=== PATIENT | female | born 1940 | race Caucasian/White ===

== ENCOUNTER 2016-11-07 20:30 | Inpatient (IN) | payer MEDICARE, OTHER ==
[~2016-11-07] VITALS: Ht 167.6 cm; Wt 69.9 kg
[~2016-11-07 20:30] MED LIST: ALBU8.5H2 IH; AMLO10TA3 PO; ASPI-973 PO; CALC600T12 PO; CETI10CA PO; CHOL200047 PO; CITA10TA9 PO; DOXE100C4 PO; EXCEDRIN PO; GUAI400T57 PO; HYDR2TAB28 PO; LETR2.5T4 PO; LOPE2TAB32 PO; MONT10TA23 PO; MULT-1018 PO; Medical Marijuana; OMEG500C3 PO; PANT40TA3 PO; TIOT18CA3 IH; UBID300C PO
[2016-11-07 20:37] VITALS: BP 146/65; PULSE 56; RESP 18; O2SAT 98
[2016-11-07 20:46] LABS: BASOPHILS % (AUTO) 0.8 % (0-3)
[2016-11-07 20:48] LABS: EOSINOPHILS % (AUTO) 2.4 % (0-5); MONOCYTES % (AUTO) 9.5 % (4-12); Platelet Count 674 bil/L (150-400)
--- NOTE | 2016-11-07 20:57 | ED.REPORT ---
HPI-Abd Pain F 40 and Over Date of Service Nov 07, 2016 ED Provider: Dr. Payne. A 75 year old female with a history or COPD presents to the ED via EMS complaining of abdominal pain onset yesterday. The pain is concentrated in the left side, does not radiate, is exacerbated by movements, is described as sharp and is rated as 10/10. She reports never feeling pain like this in the past. She took hydrocodone at home to treat the pain. Associated symptoms include diarrheax3 onset 3 days ago. She has an abdominal scar from previous Gallbladder surgery. The patient denies any fever, nausea, or vomit. She is currently recovering from bronchitis and reports related wheezing. She does not use a nebulizer, but does use Albuterol inhaler. Nursing Notes Stated Complaint: STOMACH PAIN Chief Complaint: Female Abdominal Pain Nursing Notes Reviewed: Yes ([employer], [employer] not reconciled) Allergies: Coded Allergies: Penicillins (Verified Allergy, Severe, RASH, ITCHING, 08/03/15) fluticasone (Verified Allergy, Severe, WHEEZING, 08/03/15) sulfamethoxazole (Verified Allergy, Severe, RASH, ITCHING, 08/03/15) niacin (Verified Allergy, Mild, Rash,Itching,, 08/03/15) Adhesives (Verified Allergy, Unknown, UNKNOWN, 08/03/15) cephalexin (Verified Adverse Reaction, Severe, ITCHING, 08/03/15) flunisolide (Verified Adverse Reaction, Severe, COUGH, SORE THROAT, ) oxycodone (Verified Adverse Reaction, Severe, itching, 08/03/15) Uncoded Allergies: BENZOCAIN (Allergy, Unknown, UNKNOWN, 03/25/15) LANOCAIN (Allergy, Unknown, UNKNOWN, 03/25/15) SUTURE, (CAT GUT) (Allergy, Unknown, UNKNOWN, 03/25/15) BENEDRYL (Adverse Reaction, Severe, ITCHING, 03/25/15) Scheduled ([Excedrin]) 1-2 TAB PO DAILY Amlodipine (Amlodipine) 10 Mg Tablet 10 MG PO DAILY Amlodipine (Amlodipine) 5 Mg Tablet 5 MG PO DAILY Aspirin (Aspirin) 81 Mg Tablet 81 MG PO DAILY Cetirizine HCl (Zyrtec) 10 Mg Capsule 10 MG PO BID Cholecalciferol (Vitamin D3) (Vitamin D3) 2,000 Unit Capsule 2,000 UNIT PO DAILY Citalopram (Citalopram) 10 Mg Tablet 10 MG PO BID Doxepin (Doxepin) 100 Mg Capsule 50-150 MG PO HS Guaifenesin (Guaifenesin) 400 Mg Tablet 400 MG PO DAILY Letrozole (Letrozole) 2.5 Mg Tablet 2.5 MG PO DAILY Loperamide (Loperamide) 2 Mg Tablet 2 MG PO DAILY DAILY WHEN LEAVING HOME Montelukast (Montelukast) 10 Mg Tablet 10 MG PO HS Multivitamin (Multi Vitamin Daily) 1 Each Tablet 1 EACH PO DAILY [place]-3 Fatty Acids (Fish Oil) 500 Mg Capsule 500 MG PO BID Pantoprazole DR (Pantoprazole DR) 40 Mg Tablet.dr 40 MG PO BID Ubidecarenone (Co Q-10) 300 Mg Capsule 300 MG PO DAILY Scheduled PRN Albuterol HFA (Proair HFA) 8.5 Gm Hfa.aer.ad 2 PUFFS IH Q4 PRN PRN For Shortness of Breath Hydromorphone (Hydromorphone) 2 Mg Tablet 2-4 MG PO Q4H PRN PRN Pain Tiotropium [place] (Spiriva) 18 Mcg Cap.w.dev 18 MCG IH DAILY PRN PRN For Shortness of Breath Miscellaneous Medications ([Medical Marijuana]) Calcium Carbonate (Calcium) 600 Mg Tablet 1,000 MG PO General Time Seen by MD: 20:55 Chief Complaint Abdominal pain Hx Obtained From: Patient, EMS Arrived By: Ambulance Sudden in Onset?: Yes Onset Occurred: Yesterday Symptom Duration: Since onset Recent Healthcare: No recent doctor visit Similar Sx Previous: No Past Medical History Past Medical History Notes: Oncologist Dr. Borja Past Medical History 1. Chronic depression and anxiety. 2. COPD. 3. Until recently tobacco addiction. 4. Possible coronary artery disease. 5. GERD. 6. Hypertension. 7. Osteopenia. 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 Tonsillectomy adenoidectomy excision. 2. Ovarian cysts. 3. Right breast biopsy in 1971. 4. Cholecystectomy through a subcostal incision 1973. 5. Hysterectomy without oophorectomy. 6. Colonoscopy with polypectomy. 7. Bilateral cataract extractions and lens implants. 8. Partial pneumonectomy Smoking History Former Smoker Review of Systems Constitutional: Denies: Fever Respiratory: Reports: Wheezing GI: Reports: Abdominal pain, Diarrhea, Denies: Nausea, Vomiting Complete sys rev & neg: except as marked. Physical Exam Vital Signs Vital Signs (First) Date Time Temp Pulse Resp B/P Pulse Ox O2 Delivery O2 Flow Rate FiO2 11/07/16 20:37 36.8 56 18 146/65 98 Room Air Initial VS: Reviewed, Vital signs normal General/Constitutional: Awake, Alert Patient is in severe pain. She is holding her left abdomen and is literally in tears. A few scattered wheezes. No dyspnea or tachypnea. No coughing during exam. Cardiovascular: Heart rate NL, Regular rhythm, Heart sounds NL, No gallop, No murmurs, No rubs Abdomen: Soft, No guarding, No rebound Large scar across entire midline transverse horizontally from prior cholecystectomy. While she is having pain, there is no particular tenderness upon palpation. Back: Atraumatic, Full range of motion Head / Eyes: Atraumatic, Normocephalic, PERRL, EOMI ENT: Atraumatic, Airway patent, Mucous membranes moist Skin: Atraumatic, Color NL, No rash, Warm, Dry Neurologic: Oriented X3, Speech NL Neck: Atraumatic, Full range of motion Upper Extremity / MS: Atraumatic, Full range of motion Wrist / Hand: Atraumatic, Full range of motion Lower Extremity / Pelvis / MS: Atraumatic, Full range of motion Interpretation & Diagnostics Interpretation & Diagnostics: Abdomen CT. Conclusion: Large rectus hematoma in the left anterior abdominal wall. Dilation of the bilateral tract. This is a frequent normal finding after cholecystectomy. Correlate with laboratory data to determine if further evauluation is indicated to exclude obstruction. Minimal patcy ground glass density in the right lung base. This may be acute or chronic. Any signs or symptoms of pneumonia? Small hiatal hernia. Cystic lesion in the left adnexa. This may need followup depending on history. This report was transmitted to the emergency room at 11/07/2016 - 2231 by Jacob Benitez. Interpreted by radiologist. Lab Results Interpretation Result Diagram: 11/08/16 0002 11/07/162039 Test 11/07/16 20:40 11/07/16 21:42 11/07/16 22:40 White Blood Count 12.3th/mm3 (3.8-10.1) Red Blood Count 5.15mil/mm3 (3.90-5.20) Mean Corpuscular Volume 80.0fL (81-100) Mean Corpuscular Hemoglobin 26.0pg (27.0-35.0) Mean Corpuscular Hemoglobin Concent 32.5% (32.0-37.0) Red Cell Distribution Width 18.0% (12.3-15.4) Platelet Count 674bil/L (150-400) Neutrophils (%) (Auto) 71.0% (40-74) Lymphocytes (%) (Auto) 14.5% (14-46) Monocytes (%) (Auto) 9.5% (4-12) Eosinophils (%) (Auto) 2.4% (0-5) Basophils (%) (Auto) 0.8% (0-3) Sodium Level 130mEq/L (134-144) Potassium Level 3.6mEq/L (3.5-5.2) Chloride Level 89mEq/L (97-108) Carbon Dioxide Level 22mmol/L (18-29) Blood Urea Nitrogen 9mg/dL (8-27) Creatinine 0.90mg/dL (0.57-1.00) Estimat Glomerular Filtration Rate 87mL/min (>59) Glucose Level 142mg/dL (60-99) Calcium Level 9.6mg/dL (8.5-10.1) Magnesium Level 1.8mg/dL (1.6-2.6) Total Bilirubin 0.2mg/dL (0.0-1.2) Aspartate Amino Transf (AST/SGOT) 50U/L (0-50) Alanine Aminotransferase (ALT/SGPT) 22U/L (0-32) Alkaline Phosphatase 57U/L (25-165) Total Protein 7.5g/dL (6.4-8.4) Albumin 4.4g/dL (3.4-5.0) Lipase 80U/L (13-60) Lactic Acid Level 1.4mmol/L (0.4-2.0) Prothrombin Time 10.2sec (8.1-12.5) Prothromb Time International Ratio 0.95ratio Lab Results Interpretation: CBC positive leukocytosis CMP mild hyponatremia X-Ray Chest Interpretation Chest Xray Interpretation: No acute disease process, surgical clips 2334. Interpretation / Wet Read by: Wet read ED physician Re-Eval/Medical Decision Med Decision/Clinical Course This is a 75-year-old female presents with acute onset of pleuritic left sided abdominal pain. She has had a cough recently, reports no coughing is unbearable agony-and she is clutching her abdomen, in tears and severe pain on arrival. Ever had pain like this before, moving, coughing, or nearly unbearable. She denies fevers or chills, she denies shortness breath, denies dysuria. She does have a history of COPD and has trace wheezes on exam-states her breathing is at baseline she does not need any nebulizers. She did require multiple, titrated doses of Dilaudid to achieve pain control. Workup was pursued. She is a trace leukocytosis, a normal lactic acid, and underwent CT imaging reveals a large left rectus sheath hematoma. I double checked with her, she indicated she is only on aspirin-and she confirms this- that she is not on any other anticoagulants or antiplatelet agents.. There was also an incidental ovarian cystic structure identified, and I relayed the need for follow-up as an outpatient for this as well. The patient is finally improved on repeat exams-all the required multiple doses. A chest x-rays obtained revealed no alayna infiltrate or acute abnormality per my interpretation. Not finding evidence of bacterial infection. Given the severe pain, requiring titrated doses of narcotics in a patient who has compromised lung function and COPD at baseline, admission for obtain pain management is indicated. (And notably, the rectus sheath hematoma imaging is quite impressive) The patient's being admitted in improved condition. The case was discussed the hospitalist. Source of Hx: Old records Re-Evaluation/Progress #1: Time of Eval: 21:25 Re-Evaluation/Progress Note: Rechecked patient who is still in pain. Re-Evaluation/Progress #2: Time of Eval: 22:55 Re-Evaluation/Progress Note: Rechecked patient, learned that she is not on any blood thinners except aspirin. Explained ovarian cyst result in CT and need to follow up as an out patient. Re-Evaluation/Progress #3: Time of Eval: 23:34 Re-Evaluation/Progress Note: Rechecked patient, explained normal chest XRay and plan for admission to hospital. Patient understands and agrees with the plan. All questions addressed. Consultation : Referral / Consult Name: Yun Rodriguez DO Call Returned at: 23:12 Book Binder: Will see patient, Agrees with eval, Agrees with plan, Accepts admit Note: Discussed patient case with Dr. Rodriguez who accepts patient admit. Differential Diagnosis: Positive: Acute abdominal pain, Negative: Abdominal aortic aneurysm, Appendicitis, Bladder outlet obstruct, Bowel obstruction, Cholangitis, Cholecystitis, Diabetic ketoacidosis, Diverticular disease, Ectopic preg ruptured, Ectopic , Esophageal rupture, Foreign body, Gun shot wound abdomen, Infectious mononucleosis, Malignancy, Ovarian torsion, Porphyria, Stab wound abdomen, Trauma, abdominal Counseled Regarding: Diagnosis, Lab results, When/why to return to ED, Need for admission Discharge & Departure Primary Impression: Rectus sheath hematoma Encounter type: initial encounter Qualified Code: S30.1XXA - Contusion of abdominal wall, initial encounter Additional Impressions: Intractable pain COPD (chronic obstructive pulmonary disease) COPD type: unspecified COPD Qualified Code: J44.9 - Chronic obstructive pulmonary disease, unspecified Ovarian mass, left Disposition: ADMITTED TO HOSPITAL Discharge Condition All VS Reviewed: Yes Condition: Improved Referrals: Emperatriz Rehman MD (PCP) Radha Attestation Portions of this note were transcribed by Oswaldo Leonard. I, Dr. Payne personally performed the history, physical exam and medical decision-making; I reviewed and confirmed the accuracy of the information in the transcribed note. Signed by: Radha Rodney, 11/07/2016and 2353. copies to: Emperatriz Rehman MD, Matthew F MD Nov 07, 2016 20:57 Oswaldo Leonard Nov 07, 2016 21:05 Oswaldo Leonard Nov 07, 2016 21:05
[2016-11-07] MEDS ORDERED: Ondansetron 2 mg/mL 2 mL Inj IVPUSH ONE (21:00)
[2016-11-07] MEDS: HYDROmorphone 0.5 mg/0.5 mL iSecure Syringe IVPUSH PRN ×3 (21:07→23:32)
[2016-11-07 21:33] LABS: Magnesium 1.8 mg/dL (1.6-2.6)
[2016-11-07] MEDS ORDERED: HYDROmorphone 1 mg/mL Inj IVPUSH PRN (21:50)
[2016-11-07 23:06] LABS: INR 0.95 ratio
[2016-11-07] MEDS ORDERED: Polyethylene Glycol (PEG) 17 Gm Powder PO PRN (23:15)
[2016-11-07] MEDS ORDERED: Ondansetron 2 mg/mL 2 mL Inj IVPUSH PRN (23:15)
[2016-11-07] MEDS ORDERED: Alum-Mag Hydrox-Simeth 30 mL Suspension PO PRN (23:15)
[2016-11-08] VITALS (19 sets, daily range): BP systolic 116–154; BP diastolic 62–85; PULSE 63–84; RESP 16–21; O2SAT 86–96
[2016-11-08] MEDS ORDERED: AMLO5TAB2 PO (00:56)
[2016-11-08] MEDS ORDERED: HYDROmorphone 1 mg/mL Inj IVPUSH PRN ×3 (01:00→05:45)
[2016-11-08] MEDS ORDERED: Tiotropium 18mcg/Cap 5 Capsule Inhaler Kit INHALATION PRN (01:10)
[2016-11-08] MEDS ORDERED: Albuterol 2.5 mg/3 mL Inhalation Solution NEB PRN (01:10)
[2016-11-08] MEDS ORDERED: Ondansetron 2 mg/mL 2 mL Inj IVPUSH PRN (01:40)
[2016-11-08] MEDS ORDERED: Dextrose 5% 500 ML IV SCH (01:40)
[2016-11-08] MEDS ORDERED: HYDROmorphone PCA 0.2 mg/mL 30 mL Inj IV PRN (01:40)
--- NOTE | 2016-11-08 02:14 | PCM.HPMED ---
Subjective Date of Service Nov 08, 2016 Primary Provider: Admitting Physician: Yun Rodriguez DO Primary Care Physician: Emperatriz Rehman MD Attending Physician: Yun Rodriguez DO Chief Complaint: Rectus sheath hematoma History of Present Illness: Ms. eFrnandes is a 75-year-old female history of COPD, left segmental lung resection for stage II lung cancer, left vasectomy for BC, lower GI bleed from AVM who presented to ED secondary to aggressive left abdominal pain 2 days. Patient has had a cough for the last week or so with associated dyspnea and has been aggravated with mild activity. She was seen at urgent care and given Z-Zia for bronchitis. Currently she endorses the pain as a 9 out of 10, at time of interview patient had received her last dose of Dilaudid approximately 1 hour prior. She states she has never felt pain this severe in the past and was taking hydrocodone at home to treat the pain without effect. Movement and twisting of her torso will increase the pain. She also endorses diarrhea 3 days. Patient denies any fever nausea or vomiting, chest pain, shortness of breath, headache or visual disturbances. In the ED she required multiple titrated doses of Dilaudid for pain control. She has trace leukocytosis, normal lactic acid CT scan showed large left rectus sheath hematoma. Patient states she is only on low-dose aspirin at home and not on any other anticoagulants or antiplatelet therapy. She states she has no known history of blood clotting disorders or no known family history of blood clotting disorders. She denies any trauma to the abdomen. Review of Systems: A comprehensive review of systems was conducted with the patient and found to be negative except as above in the history of present illness. Allergies Coded Allergies: Penicillins (Verified Allergy, Severe, RASH, ITCHING, 08/03/15) fluticasone (Verified Allergy, Severe, WHEEZING, 08/03/15) sulfamethoxazole (Verified Allergy, Severe, RASH, ITCHING, 08/03/15) niacin (Verified Allergy, Mild, Rash,Itching,, 08/03/15) Adhesives (Verified Allergy, Unknown, UNKNOWN, 08/03/15) cephalexin (Verified Adverse Reaction, Severe, ITCHING, 08/03/15) flunisolide (Verified Adverse Reaction, Severe, COUGH, SORE THROAT, ) oxycodone (Verified Adverse Reaction, Severe, itching, 08/03/15) Uncoded Allergies: BENZOCAIN (Allergy, Unknown, UNKNOWN, 03/25/15) LANOCAIN (Allergy, Unknown, UNKNOWN, 03/25/15) SUTURE, (CAT GUT) (Allergy, Unknown, UNKNOWN, 03/25/15) BENEDRYL (Adverse Reaction, Severe, ITCHING, 03/25/15) Home Medications Albuterol HFA 2 puffs every 4 when necessary Amlodipine 5 mg daily aspirin 81 mg daily as an carbonate 1 g daily Cetirizine 10 mg twice a day Cholecalciferol 2 g daily Citalopram 10 mg twice a day Doxepin 50-150 mg by mouth at bedtime 57 400 mg daily Hydromorphone 2 mg when necessary Letrozole 2.5 mg daily Loperamide 2 mg daily Montelukast 10 mg at bedtime Multivitamin daily [place]-3 fatty acids 500 mg twice a day Pantoprazole DR 40 mg twice a day T a troponin bromide 18 g capsules when necessary Ubidecarenone 300 Mg daily Excedrin when necessary PMH 1. Chronic depression and anxiety. 2. COPD. 3. Until recently tobacco addiction. 4. Possible coronary artery disease. 5. GERD. 6. Hypertension. 7. Osteopenia. 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 Tonsillectomy adenoidectomy excision. 2. Ovarian cysts. 3. Right breast biopsy in 1971. 4. Cholecystectomy through a subcostal incision 1973. 5. Hysterectomy without oophorectomy. 6. Colonoscopy with polypectomy. 7. Bilateral cataract extractions and lens implants. 8. Partial pneumonectomy Family History Patient denies any family history of coagulation disorders. Endorses significant family history for cancer. Mother breast cancer which metastasized to bone brother pancreatic cancer and multiple second-degree relatives with colon cancer. Social History Hx Alcohol Use: Yes (2-3 drinks per day) Hx Substance Use: No Hx Tobacco Use: Yes (1-2 PACKS DAILY) Smoking Status: Former Smoker Exam Vital Signs Vital Sign - Last Date Time Temp Pulse Resp B/P Pulse Ox O2 Delivery O2 Flow Rate FiO2 11/07/16 20:37 36.8 56 18 146/65 98 Room Air Exam General: Patient sitting up in hospital bed in moderate distress guarding abdomen. Appropriately interactive HEENT: Normocephalic, atraumatic. External ears without defect. Pupils constricted 1 mm, round. Anicteric sclerae, moist conjunctivae, and no lid lag. Neck: Supple with full range of motion. No jugular venous distension. No bruits. Cardiovascular: Regular rate and rhythm with no murmurs, rubs, or gallops appreciated Pulmonary: Mild expiratory wheezes bilaterally, no crackles or rhonchi. Normal respiratory effort with no use of accessory muscles. Abdomen: Mildly tender to palpation right upper and lower quadrants. Exquisitely tender to palpation left upper and lower quadrants. Patient guarding abdomen. Abdomen is rigid to palpation right upper and lower quadrants with distention that does not cross the midline. Extremities: No edema. Neurological: Cranial nerves grossly intact. Psychiatric: Normal mood and affect. Alert and oriented to person, place, and time. Lab and Diagnostics Result Diagram: 11/07/16203911/07/162039 Assessment & Plan 75 female past medical history COPD, lung cancer, breast cancer admitted for rectus sheath hematoma. 1. Rectus sheath hematoma, present on admission. Ongoing. Risk factors include COPD, home ASA, advanced age, female. CT confirms this diagnosis. While it does not appear to cross the midline and it does appear to dissected through the transversalis fascial plane. At time of dictation awaiting radiologist's read. PT 10.2, INR 0.95. - H&H 13.4/40 1. 2 repeat 13.0/40.0. Repeat H&H every 4 - Pain management with 0.5-1mg IV push Dilaudid Q3 PRN - Hemodynamically stable, monitor BP every 2hr if pt remains stable then every 4. - Continue to monitor 2. Hypertension. Present on admission. Patient currently hemodynamically Stable - Hold home amlodipine 5 mg, patient states she has not taken these medications for 1-2 days secondary to recent illness. - Restart antihypertension medications as needed 3. COPD. Present on admission. Stable - O2 saturations on room air 92% - Continue home Albuterol HFA every 4 when necessary - Continue home Tiotropium [place] 18 Mcg when necessary 4. Bronchitis, present on admission. Ongoing. Patient seen in urgent care 10/2016 given a 5 day course of azithromycin 250 mg daily. - Continue azithromycin 250 mg daily, if patient start date was 11/05/2016 than 11/09/2016 should be stop date. 5. Chronic depression and anxiety. Present on admission. Ongoing - Hold home citalopram secondary to azithromycin use. 6. Leukocytosis. Present on admission. Ongoing - Most likely secondary to stress reaction from abdominal pain. - Continue to monitor 7. Hyponatremia. Present on admission. Ongoing. - Maintenance IVF 80 mL per hour elevated glucose, acute, poa -no h/o DM -hgba1c pending thrombocytosis, unknown chronicity -hold asa given hematoma Pain Evaluation: Adequate Pain Control GI Prophylaxis: Proton Pump Inhibitor VTE Prophylaxis Indicated: Contraindicated (rectus sheath hematoma) VTE Prophylaxis: SCDs Resuscitation Status: CPR: Attempt Resuscitation Attending Statement The patient was seen and examined together with house staff on 11/07/2016 and I agree with the history, exam and plan as outlined in the note above. ROJELIO MUNSON DO Nov 08, 2016 00:12 Yun Rodriguez DO Nov 08, 2016 03:15
[2016-11-08] MEDS ORDERED: Pantoprazole 20 mg ER24 Tablet PO PRN (02:15)
--- NOTE | 2016-11-08 02:49 | NUR ---
Admit Pt on unit via wheelchair with [place] from ED at 0020. Report given by Gloria Chavez.
--- NOTE | 2016-11-08 02:50 | NUR ---
Nausea/vomiting Pt c/o nausea approximately 0240. Pt does not have anti-emetic medication. At 0250 Pt has vomited approximately 100mls. paged.
[2016-11-08] MEDS: 0.9% Sodium Chloride 1,000 ML IV SCH ×2 (03:18→15:44)
[2016-11-08] MEDS: Ondansetron 2 mg/mL 2 mL Inj IVPUSH PRN ×3 (03:41→11:58)
--- NOTE | 2016-11-08 05:36 | NUR ---
Pain Pt is complaining of 9/10 pain. Gave 1mg Dilaudid 2 hours ago. MD paged per instructions for adequate pain control.
[2016-11-08] MEDS ORDERED: HYDROmorphone 1 mg/mL Inj IVPUSH ONE (05:45)
--- NOTE | 2016-11-08 06:09 | DRSVH ---
PROCEDURE: X-RAY CHEST ONE VIEW, PORTABLE ([id number]) INDICATIONS: 75 year-old female with cough. TECHNIQUE: One view of the chest was acquired. COMPARISON: [facility], CT, CT CHEST WO CON, 10/14/2016, 13:45. [facility], CR, XR CHEST 1VW (PORTABLE), 08/06/2015, 20:51. [facility], CR, XR CHEST 1VW (PORTABLE), 06/06/2015, 6:11. [facility], CR, XR CHEST 1VW (PORTABLE), 06/05/2015, 18:30. FINDINGS: Surgical changes and devices: Patient is status post right breast lumpectomy. Lungs and pleura: No pleural effusions or pneumothorax. Lungs are clear, except for left upper lung scarring as before. Mediastinum: Mediastinal contours appear normal. Heart size is normal. There is aortic atheroscler osis. Bones and chest wall: No suspicious bony lesions. Overlying soft tissues appear unremarkable. IMPRESSION: No acute cardiopulmonary disease. The left upper lung scarring is again noted, status post left upper lung mass resection. Dictated by: Juan R Tubbs M.D. on 11/08/2016 at 6:05 Approved by: Juan R Tubbs M.D. on 11/08/2016 at 6:08
--- NOTE | 2016-11-08 07:04 | DRSVH ---
PROCEDURE: CT ABDOMEN AND PELVIS WITH CONTRAST ([id number]) INDICATIONS: 75 year-old female with left abdominal pain, history of breast and lung carcinoma. TECHNIQUE: After the administration of intravenous contrast, 5 mm thick sections acquired from the diaphragm to the symphysis. 5 mm coronal and sagittal reformats were acquired. For radiation dose reduction, the following was used: automated exposure control, adjustment of mA and/or kV according to patient siz e. COMPARISON: [facility], CT, CT CHEST WO CON, 10/14/2016, 13:45. [facility], CT, CT CHEST WO CON, 05/06/2015, 15:08. [facility], NM, PET NECK TO MID THIGH STD, 015, 14:52. FINDINGS: Preliminary interpretation rendered by [facility]. Image quality: Excellent. ABDOMEN: Lung bases: Patchy groundglass opacities in the posterior right lung base appear new since October. There is small retrocardiac hiatal hernia. Heart size is normal. Solid organs: Liver is normal in size and enhancement. Gallbladder is surgically absent, with great er than typical prominence of the extrahepatic bile duct up to 1.8 cm diameter. Pancreas enhances no rmally. There is mild splenomegaly, with 4.8 cm ill-defined hypoenhancing lesion in the inferior spl enic pole, not significantly changed in overall size since 2014. No adrenal nodules. Kidneys demonst rate normal size and enhancement, without hydronephrosis. Peritoneum and bowel: Bowel loops demonstrate normal wall thickness and caliber. No free fluid or a ir. Nodes and vessels: No retroperitoneal or mesenteric adenopathy by size criteria. Aorta and inferior vena cava are normal in size, with diffuse aortoiliac atherosclerosis. Miscellaneous: No ventral hernias. There is asymmetric heterogeneously hyperdense enlargement of the left rectus abdominis muscle, measuring up to 9.7 x 9.8 x 6.0 cm, consistent with hematoma. Sagittal images demonstrate inferior dissection of hematoma posterior to the left rectus abdominis muscle fib ers. There is enhancement within the inferior epigastric arteries, without active contrast extravasat ion. PELVIS: Genitourinary: Bladder wall thickness is normal. The uterus is surgically absent. 4.5 x 3.9 cm thin- walled left adnexal cyst is unchanged in size, with localized mural calcification as before. Postmeno pausal right ovary is not visualized, and may be small or surgically absent. Miscellaneous: No inguinal hernias or adenopathy. Bones: No suspicious bony lesions. No vertebral body compression fractures. IMPRESSION: 1. Large left rectus abdominis intramuscular hematoma with inferior extra muscular dissection. No act chandler contrast extravasation from the left inferior epigastric artery at the time of scan. 2. Greater than typical amount of extrahepatic biliary ductal dilation status post remote cholecystec vishal may suggest distal common bile duct stricture, slightly increased in degree since [address] R ecommend correlation with liver function testing. 3. New patchy right lung base ground glass opacities would suggest early pneumonia. 4. Small retrocardiac hiatal hernia. 5. 4.8 cm inferior splenic hypoenhancing lesion is of uncertain etiology, but does not appear signifi cantly changed in overall size since 2015 PET/CT, somewhat more reassuring for benign etiology. 6. 4.5 x 3.9 cm postmenopausal left adnexal cystic lesion has slightly decreased in size from 5.2 cm since 2015, more reassuring for benign etiology. Dictated by: Juan R Tubbs M.D. on 11/08/2016 at 6:38 Approved by: Juan R Tubbs M.D. on 11/08/2016 at 7:02
[2016-11-08] MEDS: Tiotropium 18mcg/Cap 5 Capsule Inhaler Kit INHALATION SCH (09:03)
[2016-11-08] MEDS: Albuterol-Ipratropium 3 mL Inhalation Solution NEB SCH ×2 (09:18→11:44)
--- NOTE | 2016-11-08 10:20 | NUR ---
Pain and nausea Pt. was admitted with uncontrolled pain last night. Her pain was treated with PRN Hydromorphone IV overnight. Pain relief was short lived with PRN Hydromorphone IV and pt. experienced bouts of breakthrough pain last night. Dr. Dumont came to assess pt. early in the morning. BRAZER CRAWLER TORCH Hydromorphone was started for better pain control. Pt. was educated on BRAZER CRAWLER TORCH use. Pt. had no more moaning secondary to pain since BRAZER CRAWLER TORCH was started. Currently, she is sleeping comfortably. Nausea was treated with PRN Zofran IV. One episode of 20 mL emesis. Hold morning medications for now as requested by pt. Will attempt PO medications when pt. is ready.
--- NOTE | 2016-11-08 10:25 | NUR ---
Social Work-initial assessment: Data & Assessmrnt: See initial assessment. EMR Reviewed. Pt is a 75 y/o female who was admitted on 11/07/16 for rectus sheath hematoma per H&P. Pt's insurance is [id number] and PCP is Emperatriz Rehman MD. Patient does not have a readmit score. SW attempted to meet with patient to discuss discharge planning, SW role and complete initial assessment, but the patient was asleep and unable to be awakened. SW completed initial assessment via phone with NOK Zuleika Mccarthy. Pt resides at home alone in a single level home with one step to enter and 20 steps down to the basement and laundry room where pt remains independent with basic ADLs. Pt does drive. Pt has no HH or SNF history. Pt has not completed DPOA/ advanced directive SW provided information to NOK. Pt has no grease monkey care or VA benefits. 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 Pt's NOK to provide transport home at discharge. SW provided phone number and plan on white board in room. SW will continue to follow. Plan: Pt to likely discharge home no needs. Pt's NOK is supportive. SW will continue to follow. Aylin Balderas LMSW, KURT Addendum: 11/09/16 at 0857 by AYLIN BALDERAS Amended: Links added.
[2016-11-08] MEDS: guaiFENesin 600 mg ER12 Tablet PO SCH (11:55)
[2016-11-08] MEDS: predniSONE 20 mg Tablet PO SCH (11:55)
--- NOTE | 2016-11-08 12:30 | NUR ---
Abdominal binder Wrapped abdominal binder around abdomen. Also gave pt. a pillow to splint her abdomen when coughing or when repositioning in bed. Pt. reported her pain "better than yesterday."
--- NOTE | 2016-11-08 12:51 | NUR ---
AMELIA explained and signed. Copy of AMELIA and Medicare self administered medication information given to pt.
[2016-11-08] MEDS: HYDROmorphone PCA 0.2 mg/mL 30 mL Inj IV PRN ×2 (14:18→21:00)
[2016-11-08] MEDS ORDERED: Albuterol 1.25 mg/3 mL Inhalation Solution NEB PRN (16:00)
[2016-11-09] VITALS (12 sets, daily range): BP systolic 112–137; BP diastolic 62–79; PULSE 65–80; RESP 16–20; O2SAT 94–95
[2016-11-09] MEDS ORDERED: hydrOXYzine Pamoate 25 mg Capsule PO ONE ×2 (00:10→12:43)
[2016-11-09 03:10] LABS: APPEARANCE,URINE SLIGHTLY CLOUDY (CLEAR,HAZY); COLOR,URINE YELLOW (YELLOW); OCCULT BLOOD,URINE NEGATIVE (NEGATIVE); UROBILINOGEN,URINE NORMAL (NORMAL)
--- NOTE | 2016-11-09 04:23 | NUR ---
pain/coughing/sputum pt rated pain 7/10 during this shift. encouraged pt to use PROGRAM ADMINISTRATOR q10 minutes. pt state " I forgot to use it that often." refused oral Tylenol. pt has been coughing a lot during this shift. produce dark sputum (old blood ) earlier in the shift and clear otherwise. no alayna red blood. paged hospitalist to let her know about dark sputum. VSS. on 1L O2, sat stable in 92-95%. Bed is locked and in low position. call light within reach. will continue to monitor. Addendum: 11/09/16 at 0702 by JOHNSON PETERSEN RN pt has been coughing a lot during this shift. paged hospitalist and received oral 100mg Benzonatate. administered medication. pt appears asleep for 1 hrs. will continue to monitor.
[2016-11-09] MEDS: 0.9% Sodium Chloride 1,000 ML IV SCH (04:41)
[2016-11-09] MEDS: HYDROmorphone PCA 0.2 mg/mL 30 mL Inj IV PRN (04:45)
[2016-11-09 07:40] LABS: Mean Corpuscular Hemoglobin 25.8 pg (27.0-35.0); Mean Corpuscular Volume 80.9 fL (81-100); Platelet Count 663 bil/L (150-400)
[2016-11-09] MEDS ORDERED: Albuterol 1.25 mg/3 mL Inhalation Solution NEB SCH (08:00)
[2016-11-09 08:02] LABS: Magnesium 1.7 mg/dL (1.6-2.6); Phosphorus 1.8 mg/dL (2.5-4.9)
[2016-11-09 08:20] LABS: BASOPHILS % (AUTO) 0 % (0-3); EOSINOPHILS % (AUTO) 0 % (0-5); MONOCYTES % (AUTO) 9 % (4-12); NEUTROPHILS % (AUTO) 82 % (40-74)
[2016-11-09] MEDS: Tiotropium 18mcg/Cap 5 Capsule Inhaler Kit INHALATION SCH (08:30)
[2016-11-09] MEDS: Polyethylene Glycol (PEG) 17 Gm Powder PO SCH (08:30)
[2016-11-09] MEDS: predniSONE 20 mg Tablet PO SCH (09:03)
[2016-11-09] MEDS: guaiFENesin 600 mg ER12 Tablet PO SCH (09:03)
--- NOTE | 2016-11-09 11:07 | PCM.PNMED ---
Subjective Date of Service Nov 09, 2016 Subjective pt felt much better, pain controlled with WOMEN'S STUDIES PROFESSOR still coughing but denied sob Exam Vital Signs Vital Sign - Last Date Time Temp Pulse Resp B/P Pulse Ox O2 Delivery O2 Flow Rate FiO2 11/09/16 08:57 80 11/09/16 06:37 18 94 11/09/16 06:03 37.1 126/75 Nasal Cannula 1.00 Intake and Output 11/08/16 11/08/16 11/09/16 Cumulative From/Thru 15:00 23:00 07:00 11/07/16 20:37 - 11/09/16 06:40 Intake Total 1188 ml 1876 ml 3696 ml Output Total 220 ml 1050 ml 1470 ml Balance 968 ml 826 ml 2226 ml Intake Oral 200 ml 900 ml 1500 ml IV Total 988 ml 976 ml 2196 ml Output Urine Total 200 ml 1050 ml 1450 ml Emesis 20 ml 20 ml # Bowel Movements 0 0 Exam NAD, AAOx3 MMM, no LAD RRR, nl s1 s2 no mrg mild prolonged expiratory wheezing, polyphasic, no crackles, S,tender, distended, hypoactiveBS+ warm, no edema IVs and Medications Medications Reviewed: Medications were reviewed in detail Lab and Diagnostics Result Diagram: 11/09/1671411/09/16714 Assessment & Plan 75 female past medical history COPD, lung cancer, breast cancer admitted for rectus sheath hematoma. acute, active 1. Rectus sheath hematoma, present on admission. likely in the setting of aspirin use, increased intraabdominal pr due to cough with COPD exacerbation, CT abd with contrast showed no active extravasation, -pt is HD stable, h/h dropped 3g/dl, will continue to trend, target>7 transfuse as needed -s/p WOMEN'S STUDIES PROFESSOR dilaudid, stop today, will try tramadol, dilaudid iv prn -continue abdominal binder, -will manage cough as below -aggressive bowel regimen with opioid 2.dyspnea, cough, productive sputum, POA, already on Azithromycin prior to hospitalization. -continue Z-joe to finish 5days, last dose today. -albuteral q4 standing for today, continue Spiriva, singulair started prednisone 40mg qd 3/5 -Tessalon pearls, guaifenesin prn tid for cough, 3.hyponatremia, unclear chronicity, no signs of ANALYSIS EVALUATOR effect -stable with ns 80cc/hr, will stop fluid and monitor with fluid restriction -will trends q12h, get urine lytes today, chronic, stable #Hypertension. held home amlodipine 5 mg, consider restarting tomorrow #Chronic depression and anxiety. held home citalopram secondary to azithromycin use. #Leukocytosis Most likely secondary to stress reaction from abdominal pain, trends, monitor for infected hematoma. dispo: PT today, likely 1-2more days diet: advance as tolerate Full Code dvt ppx: HSQ GI Prophylaxis: Proton Pump Inhibitor VTE Prophylaxis: SCDs VTE Mechanical Devices: Intermittant Pneumatic CD Resuscitation Status: CPR: Attempt Resuscitation Time spent 35min Dedra Dumont MD Nov 09, 2016 09:20
[2016-11-09] MEDS: HYDROmorphone 1 mg/mL Inj IVPUSH PRN (11:51)
--- NOTE | 2016-11-09 14:50 | NUR ---
Evaluation completed. Please go to "Notes" then click on "Assessments and Notes" (bottom left corner of screen). Then select appropriate discipline tab on top of screen.
[2016-11-09 15:58] LABS: BASOPHILS % (AUTO) 0.1 % (0-3); EOSINOPHILS % (AUTO) 0.1 % (0-5); MONOCYTES % (AUTO) 4.7 % (4-12); Mean Corpuscular Hemoglobin 25.9 pg (27.0-35.0); Mean Corpuscular Volume 80.5 fL (81-100); NEUTROPHILS % (AUTO) 92.1 % (40-74); Platelet Count 581 bil/L (150-400)
--- NOTE | 2016-11-09 18:23 | NUR ---
Shift summary VEGETABLE BUNCHER discontinued this AM. Pt started on scheduled tramadol. She reported that her pain is being well controlled with current regimen. She was up out of bed frequently during the shift. Ambulated in the hallway with PT. Reported her cough "isn't too bad" by afternoon. She is wearing and abdominal binder and splinting with a pillow or her hands when coughing. She has had heartburn and intermittent nausea and has had a poor appetite today. Declined bowel meds this morning as she states that she had diarrhea on 11/07. Continue to monitor.
[2016-11-10] VITALS (9 sets, daily range): BP systolic 115–132; BP diastolic 62–78; PULSE 60–76; RESP 12–20; O2SAT 91–97
[2016-11-10] MEDS: Albuterol 1.25 mg/3 mL Inhalation Solution NEB PRN ×2 (00:21→04:57)
--- NOTE | 2016-11-10 06:14 | NUR ---
Cough/wheezing Pt had 2 coughing episodes. PT given Tessalon pearls and did pt teaching on why she was given them and how often she can get them. Pt also was wheezy and had neb treatments twice. Pt just wanted a regular albuterol inhaler like the one she has at home. Explained that albuterol is handled by RT.
[2016-11-10] MEDS: Pantoprazole 40 mg ER24 Tablet PO SCH ×2 (06:34→16:54)
[2016-11-10] MEDS: Tiotropium 18mcg/Cap 5 Capsule Inhaler Kit INHALATION SCH (08:21)
[2016-11-10] MEDS: guaiFENesin 600 mg ER12 Tablet PO SCH (08:22)
[2016-11-10] MEDS: predniSONE 20 mg Tablet PO SCH (08:23)
[2016-11-10] MEDS: Polyethylene Glycol (PEG) 17 Gm Powder PO SCH (08:30)
[2016-11-10 08:55] LABS: BASOPHILS % (AUTO) 0.4 % (0-3); EOSINOPHILS % (AUTO) 0.3 % (0-5); MONOCYTES % (AUTO) 7.5 % (4-12); Mean Corpuscular Hemoglobin 25.5 pg (27.0-35.0); Mean Corpuscular Volume 79.1 fL (81-100); Platelet Count 378 bil/L (150-400)
[2016-11-10 09:57] LABS: Magnesium 1.7 mg/dL (1.6-2.6); Phosphorus 1.1 mg/dL (2.5-4.9)
--- NOTE | 2016-11-10 10:00 | NUR ---
Case Management: Pt with questions re: OBS status per OIL TRUCK DRIVER. Met with pt at bedside at 0953. Explained OBS status, Medicare Part B and likely secondary insurance coverage. Advised pt that if pt's status were to change, status would be changed and pt informed. Also explained Medicare rules, that pt must meet medical necessity for status change. Will follow up with hospitalist this am re: pt plan of care. ALEKSANDAR Duval RN
--- NOTE | 2016-11-10 10:56 | NUR ---
Rounds notified that pt states she already took her final dose of azithromycin yesterday, MD states pt does not need am dose and will d/c. aware of continued left abdominal discomfort made worse with coughing. So far controlled with oral pain meds this shift. notified that per pt, has not had BM since admit but is passing a large amount of flatus. Given senna early am. To monitor and encourage increased po food intake. aware of H&H trending down at 8.9/27.6, phos of 1.1 and NA 131. To continue to monitor.
--- NOTE | 2016-11-10 11:36 | PCM.PNMED ---
Subjective Date of Service Nov 10, 2016 Subjective pt c/o persistent pain, tolerated tramadol well. still having intermittent coughing spell h/h still dropped, wearing abdominal binder eating small amount Exam Vital Signs Vital Sign - Last Date Time Temp Pulse Resp B/P Pulse Ox O2 Delivery O2 Flow Rate FiO2 11/10/16 11:15 65 11/10/16 08:20 36.5 12 122/62 95 Room Air 11/10/16 04:57 1.00 Intake and Output 11/09/16 11/09/16 11/10/16 Cumulative From/Thru 15:00 23:00 07:00 11/07/16 20:37 - 11/10/16 05:43 Intake Total 840 ml 1000 ml 5536 ml Output Total 700 ml 2170 ml Balance 140 ml 1000 ml 3366 ml Intake Oral 840 ml 1000 ml 3340 ml IV Total 2196 ml Output Urine Total 700 ml 2150 ml Emesis 20 ml # Voids 2 2 # Bowel Movements 0 Exam mildly distressed due to pain NAD, AAOx3 MMM, no LAD RRR, nl s1 s2 no mrg CTAB, no w,c, S,tender, distended, normoactive BS+ warm, no edema IVs and Medications Medications Reviewed: Medications were reviewed in detail Lab and Diagnostics Result Diagram: 11/10/1681911/10/16 0820 Assessment & Plan 75 female past medical history COPD, lung cancer, breast cancer admitted for rectus sheath hematoma. acute, active 1. Rectus sheath hematoma, present on admission. likely in the setting of aspirin use, increased intraabdominal pr due to cough with COPD exacerbation, CT abd with contrast showed no active extravasation, -s/p RN OR LPN dilaudid, stop today, continue tramadol, dilaudid iv prn -continue abdominal binder, -will manage cough as below -aggressive bowel regimen with opioid 2.dyspnea, cough, productive sputum, POA, already on Azithromycin prior to hospitalization. -still clinically active with persistent cough, improving. -finished Z-joe 5days on 11/09 -albuteral q4 standing for today, continue Spiriva, singulair started prednisone 40mg qd 4/5 -Tessalon pearls, guaifenesin prn tid for cough, 3.hyponatremia, unclear chronicity, no signs of TOP DYEING MACHINE LOADER effect, urine Na<10 likely hypovolemic vs euvolemic, no renal causes -mildly improved with fluid restriction 2liter/d -will trends q12h, -added TFT 4.acute blood lose anemia, POA, due to rectus sheath bleeding, -h/h further trending down w/o any signs of active bleeding, HD stable -will trend cbc q12h, target hgb>7 transfuse as needed chronic, stable #Hypertension. held home amlodipine 5 mg, consider restarting tomorrow #Chronic depression and anxiety. held home citalopram secondary to azithromycin use. #Leukocytosis Most likely secondary to stress reaction from abdominal pain, trends, monitor for infected hematoma. dispo: likely d/c home with HH tomorrow. diet: advance as tolerate Full Code dvt ppx: HSQ GI Prophylaxis: Proton Pump Inhibitor VTE Prophylaxis: SCDs VTE Mechanical Devices: Intermittant Pneumatic CD Resuscitation Status: CPR: Attempt Resuscitation Time spent 35min Dedra Dumont MD Nov 10, 2016 11:36
--- NOTE | 2016-11-10 12:09 | NUR ---
Social Work Note - Continued Discharge Planning: D/A: The Pt is a 76 y/o female that is now on day 3 of observation status for rectus sheath hematoma. PT eval completed 11/09, recommending further PT to progress mobility and insure safe discharge. SW met with Pt at bedside to discuss HH, Pt agreeable to HH and would meet required eligibility due to her new homebound status at this time. HH agencies explored, Pt reports no preference. SW referred to rotating calendar, referral placed to [facility]. F2F completed, [facility] to nut picker. Access given. The Pt reports concerns regarding her observation status, SW explored these concerns. SW t/c to Utilization for additional assistance, Utilization to follow-up with Pt. SW also explored her discharge plan, Pt reports that she lives alone and does not have any family living nearby to assist after discharge. The Pt reports that she does have some friends in the area, SW encouraged her to contact her friends to see if they would be able to assist her in some capacity after discharge. Senior Resource Guide also explored, Pt given copy. The Pt was discussed in morning rounds, Pt likely to discharge tomorrow. SW will continue to follow. P: The Pt is not medically ready for discharge at this time, likely to discharge home tomorrow via friend POV transportation with [facility] (RN/PT). F2F in completed, [facility] to nut picker. Access given. Senior Resource Guide given. Rossy Fernández, HAIRSPRING ADJUSTER Residential Concierge Nicol Doshi MSW
[2016-11-10] MEDS: Albuterol 2.5 mg/3 mL Inhalation Solution NEB PRN (13:09)
[2016-11-10] MEDS: Ondansetron 2 mg/mL 2 mL Inj IVPUSH PRN (14:00)
[2016-11-10] MEDS: Sodium-Potassium Phosphorus Packet PO SCH ×3 (14:06→21:29)
--- NOTE | 2016-11-10 16:00 | NUR ---
Pain notified via [employer] page at [phone] that pt continues to have increased pain with attempting to eat or drink larger amounts of fluids. Rating pain 03/15. Pt states this may be reflux related. Continues to receive pain medications and scheduled protonix. Will continue to monitor. Addendum: 11/10/16 at 1735 by GABRIEL HOGAN RN aware that pt refused miralax
--- NOTE | 2016-11-10 22:56 | NUR ---
Walking Per patient, Physical therapy came by and told her to walk more. She has done 2 full laps of MOC as well as smaller amounts of walking on floor.
[2016-11-11] VITALS (14 sets, daily range): BP systolic 119–145; BP diastolic 62–74; PULSE 62–77; RESP 18–22; O2SAT 93–98
[2016-11-11] MEDS: Ondansetron 2 mg/mL 2 mL Inj IVPUSH PRN ×2 (01:22→13:23)
[2016-11-11] MEDS: HYDROmorphone 1 mg/mL Inj IVPUSH PRN (01:23)
[2016-11-11] MEDS: Albuterol 2.5 mg/3 mL Inhalation Solution NEB PRN ×5 (01:45→22:22)
--- NOTE | 2016-11-11 02:00 | NUR ---
Coughing/Pain Pt had coughing fit that increased pain to 10/10. Pt also had increased wheezing in lungs. RT called for Neb treatment and IV Dilaudid was used for pain management. Pt report decreased wheezing and much improved pain management after interventions were done.
[2016-11-11] MEDS: Pantoprazole 40 mg ER24 Tablet PO SCH ×2 (06:35→17:30)
[2016-11-11] MEDS: predniSONE 20 mg Tablet PO SCH (08:18)
[2016-11-11] MEDS: Tiotropium 18mcg/Cap 5 Capsule Inhaler Kit INHALATION SCH (08:18)
[2016-11-11] MEDS: Sodium-Potassium Phosphorus Packet PO SCH ×4 (08:18→21:17)
[2016-11-11] MEDS: Polyethylene Glycol (PEG) 17 Gm Powder PO SCH (08:19)
[2016-11-11] MEDS: guaiFENesin 600 mg ER12 Tablet PO SCH (08:19)
[2016-11-11 08:20] LABS: Mean Corpuscular Hemoglobin 25.7 pg (27.0-35.0); Mean Corpuscular Volume 80.6 fL (81-100); Platelet Count 493 bil/L (150-400)
[2016-11-11 08:43] LABS: Magnesium 1.7 mg/dL (1.6-2.6)
[2016-11-11 09:18] LABS: BASOPHILS % (AUTO) 0 % (0-3); EOSINOPHILS % (AUTO) 1 % (0-5); MONOCYTES % (AUTO) 6 % (4-12); NEUTROPHILS % (AUTO) 82 % (40-74)
--- NOTE | 2016-11-11 10:40 | NUR ---
Ambulate w/Nsg; DC from PT Pt has met all PT goals and is discharged from further PT at this time; released to ambulate w/nsg 2-3x/day as pt tolerates for improved activity tolerance.
--- NOTE | 2016-11-11 11:19 | NUR ---
Case Management: Pt changed to Inpatient status. IMM given and explained to patient at bedside at 11:10 am. Signed original placed on hard chart, copy to patient. ALEKSANDAR Duval RN
--- NOTE | 2016-11-11 12:01 | PCM.PNMED ---
Subjective Date of Service Nov 11, 2016 Subjective pt had episode of nocturnal dyspnea, labored breathing, mild hypoxia, with cough spell, mildly improved with alb nebs, cough meds, This morning, pt still c/o mild SOB, persistent intermittent cough, stated that she is allergic to flovent and steroid inhaler, made her more dyspneic in the past. still has some white sputum, not prurient, amount has not increased. Exam Vital Signs Vital Sign - Last Date Time Temp Pulse Resp B/P Pulse Ox O2 Delivery O2 Flow Rate FiO2 11/11/16 11:06 65 11/11/16 10:32 Room Air 11/11/16 10:19 36.7 18 128/71 94 11/11/16 05:53 2.00 Intake and Output 11/10/16 11/10/16 11/11/16 Cumulative From/Thru 15:00 23:00 07:00 11/07/16 20:37 - 11/11/16 05:34 Intake Total 1373 ml 400 ml 7309 ml Output Total 2170 ml Balance 1373 ml 400 ml 5139 ml Intake Oral 1373 ml 400 ml 5113 ml IV Total 2196 ml Output Urine Total 2150 ml Emesis 20 ml # Voids 4 3 9 # Bowel Movements 0 Exam mildly distressed due to cough, pain, speaks in full sentences, no accessory m use. NAD, AAOx3 MMM, no LAD RRR, nl s1 s2 no mrg polyphasic exp wheezing, no crackles, S,tender, distended, normoactive BS+ warm, no edema IVs and Medications Medications Reviewed: Medications were reviewed in detail Lab and Diagnostics Result Diagram: 11/11/1640 11/11/16 0740 Assessment & Plan 75 female past medical history COPD, lung cancer, breast cancer admitted for rectus sheath hematoma. acute, active 1. Rectus sheath hematoma, present on admission. likely in the setting of aspirin use, increased intraabdominal pr due to cough with asthma/COPD exacerbation, CT abd with contrast showed no active extravasation, -s/p TIME CLERK dilaudid, stopped 11/10, continue tramadol, dilaudid iv prn -continue abdominal binder, -will manage cough as below -aggressive bowel regimen with opioid 2.dyspnea, cough, productive sputum, POA, already on Azithromycin prior to hospitalization. likely due to acute exacerbation of asthma/COPD, -still clinically active with persistent cough, -finished Z-joe 5days on 11/09, still no signs of acute infection. -albuteral q4 standing for now, added q2h prn alb nebs, continue Spiriva, singulair started prednisone 40mg qd finish 5days course tomorrow -Tessalon pearls, guaifenesin prn tid for cough, -will trends Peak flow by RT today -will consider trial of Qvar in controlled setting with RT at bedside 3.hyponatremia, unclear chronicity, no signs of CONTRACT ADMINISTRATION SPECIALIST effect, urine Na<10 likely euvolemic due to ?SIADH, no renal causes -improved with fluid restriction 2liter/d, continue it. -will trends daily -unlikely thyroid related, TFT showed subclinical hyperthyroidism, not require tx. 4.acute blood lose anemia, POA, due to rectus sheath bleeding, -h/h further trending down but stable w/o any signs of active bleeding, HD stable -will trend cbc q12h, target hgb>7 transfuse as needed 5.UCX+ for E.coli with persistent Leukocytosis, POA, will treat 3-5days of cipro today chronic, stable #Hypertension. held home amlodipine 5 mg, consider restarting if hypertensive #Chronic depression and anxiety. resumee citalopram today. dispo: likely d/c home with HH tomorrow based on respiratory status diet: advance as tolerate Full Code dvt ppx: HSQ GI Prophylaxis: Proton Pump Inhibitor VTE Prophylaxis: SCDs VTE Mechanical Devices: Intermittant Pneumatic CD Resuscitation Status: CPR: Attempt Resuscitation Time spent 35min Dedra Dumont MD Nov 11, 2016 12:01
--- NOTE | 2016-11-11 15:42 | NUR ---
Social Work Note - Continued Discharge: D/A: The Pt is a 76 y/o female that is now on day 4 of admission under observation status for rectus sheath hematoma. Pt discussed at rounds, likely to discharge home tomorrow. SW followed up with the Pt regarding discharge planning, Pt will have transportation provided via friend, neighbor, or cab. 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 The Pt reports that [employer] will be assisting the Pt will likely assists with meals once a day for a couple of weeks. SW will continue to follow. P: The Pt is not medically stable for discharge, will likely discharge home with [facility] (RN/PT) via friend POV transportation tomorrow. SW will continue to follow. Rossy Feránndez, UNIVERSAL GRINDER TOOL Casino Host BHAVIK Herring
--- NOTE | 2016-11-11 17:52 | NUR ---
Cough/Pain Pt with good pain control today, not higher than 5/10, which pt states is good for her. Scheduled Tramadol and tylenol effective with prn tessalon pearls seems to be working well; no need for dilaudid IV this shift. Minimal coughing noted. SpO2 >93% on RA. Abd binder in place, pt states it is very helpful. Wheezing intermittent, usually occurred just as next neb treatment was due; treatments helpful, per pt. Afebrile. One dark brown loose stool today. Voiding in bathroom. Uses call light to make needs known.
[2016-11-12 01:17] VITALS: BP 125/70; PULSE 59; RESP 20; O2SAT 93
[2016-11-12 06:13] VITALS: PULSE 70
--- NOTE | 2016-11-12 06:17 | NUR ---
Pain/coughing Pt had well controlled pain d/t pt not having coughing episode this shift as she has had in other shifts. Pt did start coughing at one point but was given Tessalon pearls early and minimized her coughing.
[2016-11-12] MEDS: Pantoprazole 40 mg ER24 Tablet PO SCH ×2 (06:34→17:15)
[2016-11-12 07:11] VITALS: BP 120/69; PULSE 53; RESP 20; O2SAT 91
[2016-11-12 07:41] LABS: Mean Corpuscular Hemoglobin 25.6 pg (27.0-35.0); Platelet Count 538 bil/L (150-400)
[2016-11-12 07:57] VITALS: PULSE 57
[2016-11-12 07:59] LABS: Magnesium 1.8 mg/dL (1.6-2.6); Phosphorus 2.8 mg/dL (2.5-4.9)
[2016-11-12 08:09] LABS: BASOPHILS % (AUTO) 0 % (0-3); EOSINOPHILS % (AUTO) 1 % (0-5); MONOCYTES % (AUTO) 7 % (4-12); NEUTROPHILS % (AUTO) 78 % (40-74)
[2016-11-12] MEDS: Ondansetron 2 mg/mL 2 mL Inj IVPUSH PRN (08:28)
[2016-11-12] MEDS: Polyethylene Glycol (PEG) 17 Gm Powder PO SCH (08:30)
[2016-11-12] MEDS: predniSONE 20 mg Tablet PO SCH (09:00)
[2016-11-12] MEDS: Sodium-Potassium Phosphorus Packet PO SCH ×2 (09:00→13:57)
[2016-11-12] MEDS: guaiFENesin 600 mg ER12 Tablet PO SCH (09:00)
[2016-11-12] MEDS: Tiotropium 18mcg/Cap 5 Capsule Inhaler Kit INHALATION SCH (09:01)
[2016-11-12] MEDS ORDERED: TRAM-14 PO (09:13)
[2016-11-12] MEDS ORDERED: SENN-133 PO (09:13)
[2016-11-12] MEDS ORDERED: POLY17PO6 PO (09:13)
[2016-11-12] MEDS ORDERED: PRED-508 PO (09:13)
[2016-11-12] MEDS ORDERED: CIPR-231 PO (09:13)
[2016-11-12] MEDS ORDERED: BENZ100C8 PO (09:19)
[2016-11-12 10:08] VITALS: BP 146/81; PULSE 63; RESP 20; O2SAT 95
--- NOTE | 2016-11-12 11:47 | PCM.DIMED ---
Discharge Instructions Date of Service Nov 12, 2016 Dates of Hospitalization Nov 07, 2016 at 23:51 Discharge Diagnosis Discharge Diagnosis Rectus sheath hematoma acute asthma/COPD exacerbation urinary tract infection. Medication Instructions Please use cough syrup as needed to control your cough. Please continue prednisone 3more days Please use your regular inhalers and Spiriva daily on time. you can use albuterol inhalers as needed every four hours. Please continue Ciprofloxacin, antibiotics for 3more days as directed. Diet No restrictions Activity No restrictions Call your provider Shortness of breath Patient Instructions You were hospitalized with bleeding in your belly muscle, which spontaneously stopped and also treated for acute asthma/COPD flare. You were supportively treated in the hospital, didn't have any active signs of bleeding on the day of discharge. You were treated with steroid, respiratory function seemed stable. Please follow medicine instruction as above. Follow-up plan Please follow up with your doctor in one week. Follow-up Provider: Emperatriz Rehman MD Follow-up with PCP in: 1 week Dedra Dumont MD Nov 12, 2016 09:34
--- NOTE | 2016-11-12 17:08 | NUR ---
Discharge Pt discharged at 1710. She was given discharge instructions and instructions for follow up care. She was given education regarding prescription medication and s/s that she should seek medical attention. An appointment was made for her to follow up with her primary care doctor. She was given prescriptions to take with her. She left with all of her belongings. A staff member took her by wheelchair to the exit where he friend's son was picking her up. He would be driving her home.
--- NOTE | 2016-11-12 17:21 | NUR ---
Social Work: Discharge D: Pt discussed in am rounds. pt is medically stable for discharge home today. REPRODUCTION TECHNICIAN met with pt at bedside to confirm discharge plan and to assess for unmet needs. Pt states she will be going home and confirms that she would like to go home HH through [facility] for RN, PT. Pt states a friend will be coming to pick her up. She has been ambulating I during admission and has no concerns about d/c. No further discharge planning needs or barriers identified at this time. t/c to Piero Randall with [facility]; REPRODUCTION TECHNICIAN informed him that pt is discharging. He states that he has the F2F and he will follow up with pt. A: Pt who is I at baseline P: Pt to discharge home via POV and new HH through [facility]. BHAVIK Savage
--- NOTE | 2016-11-13 12:30 | PCM.DC.MED ---
Discharge Summary Date of Service Nov 12, 2016 Dates of Hospitalization Date of Hospital Admission Nov 07, 2016 at 23:51 Date of Discharge: Nov 12, 2016 Providers: Admitting Physician: Yun Rodriguez DO Primary Care Physician: Emperatriz Rehman MD Attending Physician: Yun Rodriguez DO Diagnosis at Time of Discharge Diagnosis at Time of Discharge acute problems Rectus sheath hematoma acute asthma/COPD exacerbation urinary tract infection. hyponatremia, acute on chronic acute blood lose anemia, due to rectus sheath bleeding chronic problems #Hypertension. #Chronic depression and anxiety Procedures XRay, CTs & MRIs PROCEDURE: X-RAY CHEST ONE VIEW, PORTABLE ([id number]) INDICATIONS: 75 year-old female with cough. TECHNIQUE: One view of the chest was acquired. COMPARISON: [facility], CT, CT CHEST WO CON, 10/14/2016, 13:45. [facility], CR, XR CHEST 1VW (PORTABLE), 08/06/2015, 20:51. [facility], CR, XR CHEST 1VW (PORTABLE), 06/06/2015, 6:11. [facility], CR, XR CHEST 1VW (PORTABLE), 06/05/2015, 18:30. FINDINGS: Surgical changes and devices: Patient is status post right breast lumpectomy. Lungs and pleura: No pleural effusions or pneumothorax. Lungs are clear, except for left upper lung scarring as before. Mediastinum: Mediastinal contours appear normal. Heart size is normal. There is aortic atherosclerosis. Bones and chest wall: No suspicious bony lesions. Overlying soft tissues appear unremarkable. IMPRESSION: No acute cardiopulmonary disease. The left upper lung scarring is again noted, status post left upper lung mass resection. Dictated by: Juan R Tubbs M.D. on 11/08/2016 at 6:05 Approved by: Juan R Tubbs M.D. on 11/08/2016 at 6:08 PROCEDURE: CT ABDOMEN AND PELVIS WITH CONTRAST ([id number]) INDICATIONS: 75 year-old female with left abdominal pain, history of breast and lung carcinoma. TECHNIQUE: After the administration of intravenous contrast, 5 mm thick sections acquired from the diaphragm to the symphysis. 5 mm coronal and sagittal reformats were acquired. For radiation dose reduction, the following was used: automated exposure control, adjustment of mA and/or kV according to patient size. COMPARISON: [facility], CT, CT CHEST WO CON, 10/14/2016, 13:45. [facility], CT, CT CHEST WO CON, 05/06/2015, 15:08. [facility], NM, PET NECK TO MID THIGH STD, 05/15/2015, 14:52. FINDINGS: Preliminary interpretation rendered by [facility]. Image quality: Excellent. ABDOMEN: Lung bases: Patchy groundglass opacities in the posterior right lung base appear new since October 14, 2016. There is small retrocardiac hiatal hernia. Heart size is normal. Solid organs: Liver is normal in size and enhancement. Gallbladder is surgically absent, with greater than typical prominence of the extrahepatic bile duct up to 1.8 cm diameter. Pancreas enhances normally. There is mild splenomegaly, with 4.8 cm ill-defined hypoenhancing lesion in the inferior splenic pole, not significantly changed in overall size since 2014. No adrenal nodules. Kidneys demonstrate normal size and enhancement, without hydronephrosis. Peritoneum and bowel: Bowel loops demonstrate normal wall thickness and caliber. No free fluid or air. Nodes and vessels: No retroperitoneal or mesenteric adenopathy by size criteria. Aorta and inferior vena cava are normal in size, with diffuse aortoiliac atherosclerosis. Miscellaneous: No ventral hernias. There is asymmetric heterogeneously hyperdense enlargement of the left rectus abdominis muscle, measuring up to 9.7 x 9.8 x 6.0 cm, consistent with hematoma. Sagittal images demonstrate inferior dissection of hematoma posterior to the left rectus abdominis muscle fibers. There is enhancement within the inferior epigastric arteries, without active contrast extravasation. PELVIS: Genitourinary: Bladder wall thickness is normal. The uterus is surgically absent. 4.5 x 3.9 cm thin-walled left adnexal cyst is unchanged in size, with localized mural calcification as before. Postmenopausal right ovary is not visualized, and may be small or surgically absent. Miscellaneous: No inguinal hernias or adenopathy. Bones: No suspicious bony lesions. No vertebral body compression fractures. IMPRESSION: 1. Large left rectus abdominis intramuscular hematoma with inferior extra muscular dissection. No active contrast extravasation from the left inferior epigastric artery at the time of scan. 2. Greater than typical amount of extrahepatic biliary ductal dilation status post remote cholecystectomy may suggest distal common bile duct stricture, slightly increased in degree since [address] Recommend correlation with liver function testing. 3. New patchy right lung base ground glass opacities would suggest early pneumonia. 4. Small retrocardiac hiatal hernia. 5. 4.8 cm inferior splenic hypoenhancing lesion is of uncertain etiology, but does not appear significantly changed in overall size since 2015 PET/CT, somewhat more reassuring for benign etiology. 6. 4.5 x 3.9 cm postmenopausal left adnexal cystic lesion has slightly decreased in size from 5.2 cm since 2015, more reassuring for benign etiology. Dictated by: Juan R Tubbs M.D. on 11/08/2016 at 6:38 Approved by: Juan R Tubbs M.D. on 11/08/2016 at 7:02 Brief History Ms. Fernandes is a 75-year-old female history of COPD, left segmental lung resection for stage II lung cancer, left vasectomy for BC, lower GI bleed from AVM who presented to ED secondary to aggressive left abdominal pain 2 days. Patient has had a cough for the last week or so with associated dyspnea and has been aggravated with mild activity. She was seen at urgent care and given Z-Zia for bronchitis. Currently she endorses the pain as a 9 out of 10, at time of interview patient had received her last dose of Dilaudid approximately 1 hour prior. She states she has never felt pain this severe in the past and was taking hydrocodone at home to treat the pain without effect. Movement and twisting of her torso will increase the pain. She also endorses diarrhea 3 days. Patient denies any fever nausea or vomiting, chest pain, shortness of breath, headache or visual disturbances. In the ED she required multiple titrated doses of Dilaudid for pain control. She has trace leukocytosis, normal lactic acid CT scan showed large left rectus sheath hematoma. Patient states she is only on low-dose aspirin at home and not on any other anticoagulants or antiplatelet therapy. She states she has no known history of blood clotting disorders or no known family history of blood clotting disorders. She denies any trauma to the abdomen. Hospital Course 75 female past medical history COPD, lung cancer, breast cancer admitted for rectus sheath hematoma. acute problems 1. Rectus sheath hematoma, present on admission. likely in the setting of aspirin use, increased intraabdominal pr due to cough with asthma/COPD exacerbation, CT abd with contrast showed no active extravasation. 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 patient remained on abdominal binder. H /H remained stable. patient was recommended to stop aspirin which was for primary prevention given this episode of bleeding. 2.dyspnea, cough, productive sputum, POA, already on Azithromycin prior to hospitalization. likely due to acute exacerbation of asthma/COPD, patient improved slowly with intermittent wheezing, required prolonged neb tx, frequent anti-tussive. Patient finished Z-zia of 5days course on 11/09. Patient was also started on Prednisone 40mg to finish likely 7days course given prolonged sx( give 5days in house). Patient was coughing less on the day of discharge, minimal sx, deemed safe for d/c. Of note, patient was not on any steroid inhaler , stated that she had "allergic reaction, more dyspneac with steroid, which happened at home" However, given this unverified hx, no response with prednisone , patient will likely tolerate steroid inhaler, which haven't tried in house, patient was recommended to follow up with PCP. 3.hyponatremia, unclear chronicity, no signs of NEON INSTALLER effect, urine Na<10 likely euvolemic due to ?SIADH, no renal causes. Patient was responded to 2liter/d fluid restriction. Na elevated from 130 to 136 on discharge.TFT showed subclinical hyperthyroidism, not require tx. 4.acute blood lose anemia, POA, due to rectus sheath bleeding, h/h further trended down initially but eventually stable w/o any signs of active bleeding, didn't require transfusion. 5.UCX+ for E.coli with persistent Leukocytosis, POA, patient was started on 3- 5days of cipro chronic problems #Hypertension. BP remained stable w/o home med #Chronic depression and anxiety. resumed citalopram Exam Vital Signs (Last) Date Time Temp Pulse Resp B/P Pulse Ox O2 Delivery O2 Flow Rate FiO2 11/12/16 10:08 36.4 63 20 146/81 95 Room Air 11/11/16 22:22 2.00 Exam mildly distressed due to cough, pain, speaks in full sentences, no accessory m use. NAD, AAOx3 MMM, no LAD RRR, nl s1 s2 no mrg CTAB no w,c S,midly tender, distended, normoactive BS+ on abdominal binder warm, no edema Test 11/07/16 20:40 11/07/16 21:42 11/07/16 22:40 11/09/16 02:45 Lipase 80U/L (13-60) Lactic Acid Level 1.4mmol/L (0.4-2.0) Prothrombin Time 10.2sec (8.1-12.5) Prothromb Time International Ratio 0.95ratio Urine Color Yellow (YELLOW) Urine Appearance Slightly cloudy Urine pH 6.0 (5.0-8.0) Urine Specific [place] 1.020 (1.003-1.035) Urine Protein 30mg/dL (NEG,TRACE) Urine Glucose (UA) Negativemg/dL (NEGATIVE) Urine Ketones Negativemg/dL (NEGATIVE) Urine Occult Blood Negative (NEGATIVE) Urine Nitrite Positive (NEGATIVE) Urine Bilirubin Negative (NEGATIVE) Urine Urobilinogen Normalmg/dL (NORMAL) Urine Leukocyte Esterase Trace (NEGATIVE) Urine RBC 0-2/hpf (0-2) Urine WBC 0-5/hpf (0-5) Urine Epithelial Cells Occasional/hpf (NONE-MOD) Urine Crystals None seen (NONE SEEN) Urine Bacteria Many/hpf (NONE-FEW) Urine Hyaline Casts None/lpf (NONE) Urine Granular Casts None seen (NONE SEEN) Urine Waxy Casts None seen (NONE SEEN) Urine Red Blood Cell Casts None seen (NONE SEEN) Urine White Blood Cell Casts None seen (NONE SEEN) Urine Mucus None seen (None Seen) Urine Trichomonas None seen (NONE SEEN) Urine Yeast None (NONE SEEN) Urinalysis Comment None Urine Culture Reflexed Indicated Urine Random Sodium < 10mEq/L Test 11/10/16 08:30 11/12/16 07:00 Thyroid Stimulating Hormone (TSH) 0.222uIU/mL (0.450-4.500) Free Thyroxine 1.35ng/dL (0.82-1.77) White Blood Count 10.9th/mm3 (3.8-10.1) Red Blood Count 3.48mil/mm3 (3.90-5.20) Hemoglobin 8.9g/dL (12.0-15.6) Hematocrit 28.2% (35.0-46.0) Mean Corpuscular Volume 81.0fL (81-100) Mean Corpuscular Hemoglobin 25.6pg (27.0-35.0) Mean Corpuscular Hemoglobin Concent 31.6% (32.0-37.0) Red Cell Distribution Width 17.9% (12.3-15.4) Platelet Count 538bil/L (150-400) Neutrophils (%) (Auto) 78% (40-74) Lymphocytes (%) (Auto) 8% (14-46) Monocytes (%) (Auto) 7% (4-12) Eosinophils (%) (Auto) 1% (0-5) Basophils (%) (Auto) 0% (0-3) Band Neutrophils % 3% (1-5) Metamyelocytes % 1% (0-0) Myelocytes % 2% (0-0) Hematology Comments Rbc Sodium Level 136mEq/L (134-144) Potassium Level 4.3mEq/L (3.5-5.2) Chloride Level 97mEq/L (97-108) Carbon Dioxide Level 26mmol/L (18-29) Blood Urea Nitrogen 10mg/dL (8-27) Creatinine 1.00mg/dL (0.57-1.00) Estimat Glomerular Filtration Rate 77mL/min (>59) Glucose Level 98mg/dL (60-99) Calcium Level 8.7mg/dL (8.5-10.1) Phosphorus Level 2.8mg/dL (2.5-4.9) Magnesium Level 1.8mg/dL (1.6-2.6) Total Bilirubin 0.5mg/dL (0.0-1.2) Aspartate Amino Transf (AST/SGOT) 33U/L (0-50) Alanine Aminotransferase (ALT/SGPT) 19U/L (0-32) Alkaline Phosphatase 40U/L (25-165) Total Protein 5.9g/dL (6.4-8.4) Albumin 3.8g/dL (3.4-5.0) Discharge Medications Discharge Medications ([Excedrin]) 1-2 TAB PO DAILY (Reported) Amlodipine (Amlodipine) 5 Mg Tablet 5 MG PO DAILY (Reported) Aspirin (Aspirin) 81 Mg Tablet 81 MG PO DAILY (Reported) Cetirizine HCl (Zyrtec) 10 Mg Capsule 10 MG PO BID (Reported) Cholecalciferol (Vitamin D3) (Vitamin D3) 2,000 Unit Capsule 2,000 UNIT PO DAILY (Reported) Ciprofloxacin (Cipro) 500 Mg Tablet 500 MG PO BID Prescribed by: DEDRA MACEDO MD Citalopram (Citalopram) 10 Mg Tablet 10 MG PO BID (Reported) Doxepin (Doxepin) 100 Mg Capsule 50-150 MG PO HS (Reported) Guaifenesin (Guaifenesin) 400 Mg Tablet 400 MG PO DAILY (Reported) Letrozole (Letrozole) 2.5 Mg Tablet 2.5 MG PO DAILY (Reported) Loperamide (Loperamide) 2 Mg Tablet 2 MG PO DAILY (Reported) DAILY WHEN LEAVING HOME Montelukast (Montelukast) 10 Mg Tablet 10 MG PO HS (Reported) Multivitamin (Multi Vitamin Daily) 1 Each Tablet 1 EACH PO DAILY (Reported) [place]-3 Fatty Acids (Fish Oil) 500 Mg Capsule 500 MG PO BID (Reported) Pantoprazole DR (Pantoprazole DR) 40 Mg Tablet.dr 40 MG PO BID (Reported) Prednisone (Deltasone) 20 Mg Tablet 40 MG PO DAILY Prescribed by: DEDRA MACEDO MD Ubidecarenone (Co Q-10) 300 Mg Capsule 300 MG PO DAILY (Reported) As needed Albuterol HFA (Proair HFA) 8.5 Gm Hfa.aer.ad 2 PUFFS IH Q4 PRN PRN For Shortness of Breath (Reported) Benzonatate (Benzonatate) 100 Mg Capsule 100 MG PO TID PRN PRN For Cough Prescribed by: DEDRA MACEDO MD Hydromorphone (Hydromorphone) 2 Mg Tablet 2-4 MG PO Q4H PRN PRN Pain (Reported) Tiotropium [place] (Spiriva) 18 Mcg Cap.w.dev 18 MCG IH DAILY PRN PRN For Shortness of Breath (Reported) Tramadol (Ultram) 50 Mg Tablet 50 MG PO Q6H PRN PRN For Pain Prescribed by: DEDRA MACEDO MD Miscellaneous Medications Calcium Carbonate (Calcium) 600 Mg Tablet 1,000 MG PO (Reported) Additional med instructions Please use cough syrup as needed to control your cough. Please continue prednisone 3more days Please use your regular inhalers and Spiriva daily on time. you can use albuterol inhalers as needed every four hours. Please continue Ciprofloxacin, antibiotics for 3more days as directed. Followup Plan Disposition: home with Follow-up plan Please follow up with your doctor in one week. Discharge Diet: No restrictions Discharge Activity: No restrictions Patient Instructions You were hospitalized with bleeding in your belly muscle, which spontaneously stopped and also treated for acute asthma/COPD flare. You were supportively treated in the hospital, didn't have any active signs of bleeding on the day of discharge. You were treated with steroid, respiratory function seemed stable. Please follow medicine instruction as above. Follow-up Provider: Emperatriz Rehman MD Follow-up with PCP in: 1 week Time spent 65min Dedra Macedo MD Nov 13, 2016 12:30
--- NOTE | 2016-11-16 15:43 | NUR ---
Social Work Note - Late Entry: SW received phone call from Pt who was discharged home with home health on 11/13/16. Pt reported that she has not received any contact from [facility]. AGA t/c to [facility] regarding the Pt's concerns. [facility] confirms that they will be in contact with the Pt today. Rossy Fernández, DEBIT AGENT Subsurface Augmentee Operator BHAVIK Herring
== END 2016-11-12 17:15 | disposition home health service (06) | DRG 556 ==
LOC: SED 20:30 → OBSVTOIN 23:51 → MOC 23:51
PROVIDERS: ADMIT Internal Medicine; ATTEND Internal Medicine
DX: M79.81 Nontraumatic hematoma of soft tissue (principal); C79.81 Secondary malignant neoplasm of breast; J44.0 Chronic obstructive pulmonary disease with (acute) lower respiratory infection; N39.0 Urinary tract infection, site not specified; E22.2 Syndrome of inappropriate secretion of antidiuretic hormone; J20.9 Acute bronchitis, unspecified; T39.015A Adverse effect of aspirin, initial encounter; J44.9 Chronic obstructive pulmonary disease, unspecified; K21.9 Gastro-esophageal reflux disease without esophagitis; I10 Essential (primary) hypertension; B96.20 Unspecified Escherichia coli [E. coli] as the cause of diseases classified elsewhere; Z87.891 Personal history of nicotine dependence; Z85.118 Personal history of other malignant neoplasm of bronchus and lung; Z79.82 Long term (current) use of aspirin; Z79.51 Long term (current) use of inhaled steroids

== ENCOUNTER 2017-03-23 13:15 | Day surgery (SDC) | payer MEDICARE, OTHER ==
[~2017-03-23] VITALS: Ht 167.6 cm; Wt 68.0 kg
[~2017-03-23 13:15] MED LIST changes: -AMLO10TA3 PO; +AMLO5TAB2 PO; +BENZ100C8 PO; +Lactated Ringer's 1,000 ML IV ONE; -Medical Marijuana; +PRED-508 PO; +TRAM-14 PO
[2017-03-23] MEDS ORDERED: Propofol 10,000 mCg/mL 20 mL Inj ONE (13:16)
[2017-03-23 13:35] VITALS: BP 133/80; PULSE 66; RESP 14; O2SAT 96
[2017-03-23] MEDS ORDERED: KETO5DRO60 AFFECT_EYE (13:48)
[2017-03-23] MEDS ORDERED: FERR324T10 PO (13:48)
[2017-03-23] MEDS ORDERED: Atropine 0.4 mg/mL Inj IVPUSH PRN (14:40)
[2017-03-23] MEDS ORDERED: MetoCLOpramide 5 mg/mL 2 mL Inj IVPUSH PRN (14:40)
[2017-03-23] MEDS ORDERED: Ondansetron 2 mg/mL 2 mL Inj IVPUSH PRN (14:40)
[2017-03-23] MEDS ORDERED: Lactated Ringer's 1,000 ML IV SCH (14:40)
--- NOTE | 2017-03-23 14:56 | PCM.HPANE ---
Patient Data Date of Service: Mar 23, 2017 Surgeon Admitting Provider: Attending Provider:Tonny Mccloud MD Primary Care Physician:Emperatriz Rehman MD Other Provider:Elisha Max Anesthesia Reason for Visit Left Upper Quadrant Abdominal Pain Ht/WT & BMI Height (Feet): 5 Height (Inches): 6 Weight (Kilograms): 68.04 Body Mass Index 24.00 Allergies Coded Allergies: Penicillins (Verified Allergy, Severe, RASH, ITCHING, 08/03/15) doxycycline (Verified Allergy, Severe, rash/itching, 03/23/17) fluticasone (Verified Allergy, Severe, WHEEZING, 08/03/15) sulfamethoxazole (Verified Allergy, Severe, RASH, ITCHING, 08/03/15) niacin (Verified Allergy, Mild, Rash,Itching,, 08/03/15) Adhesives (Verified Allergy, Unknown, UNKNOWN, 08/03/15) benzethonium chloride (Unverified Allergy, Unknown, 03/22/17) ENTERED FROM UNCODED benzocaine (Unverified Allergy, Unknown, 03/22/17) ENTERED FROM UNCODED diphenhydramine (Unverified Allergy, Unknown, 03/22/17) ENTERED FROM UNCODED cephalexin (Verified Adverse Reaction, Severe, ITCHING, 08/03/15) flunisolide (Verified Adverse Reaction, Severe, COUGH, SORE THROAT, ) oxycodone (Verified Adverse Reaction, Severe, itching, 08/03/15) Uncoded Allergies: BENZOCAIN (Allergy, Unknown, UNKNOWN, 03/25/15) LANOCAIN (Allergy, Unknown, UNKNOWN, 03/25/15) SUTURE, (CAT GUT) (Allergy, Unknown, UNKNOWN, 03/25/15) BENEDRYL (Adverse Reaction, Severe, ITCHING, 03/25/15) Past Anesthesia History Anesthesia History: Denies:: Abnormal Airway, Anesthesia Reactions, Difficult Intubation, Fam Anesthesia Reaction, Fam Malignant Hypertherm, Malignant Hyperthermia Diabetes History Hx Diabetes?: No MRSA MRSA: No Medications Blood Thinner: Aspirin Last Dose Blood Thinner: Mar 22, 2017 Home Meds Incl Beta Rasheed: No Active Scripts Tramadol (Ultram)50 Mg Tevnfd63 Mg PO Q6H PRN For Pain #14 TABLET Prov:Dedra Dumont MD 11/12/16 Reported Medications Ketotifen Fumarate 5 Ml Drops1 Drop AFFECT_EYE DAILY 03/23/17 Ferrous Fumarate 324 Mg Lthtmy389 Mg PO DAILY Ref 0 03/23/17 Amlodipine 5 Mg Tablet5 Mg PO DAILY Ref 0 11/08/16 Calcium Carbonate (Calcium)600 Mg Tablet1,000 Mg PO 12/25/15 Aspirin 81 Mg Qfqgck01 Mg PO DAILY Ref 0 12/25/15 [Excedrin] No Conflict Check1-2 Tab PO DAILY PAIN 08/29/15 Mousie-3 Fatty Acids (Fish Oil)500 Mg Zoagequ865 Mg PO BID 08/03/15 Tiotropium Winston (Spiriva)18 Mcg Cap.w.dev18 Mcg IH DAILY PRN For Shortness of Breath #1 PKG Ref 0 08/03/15 Ubidecarenone (Co Q-10)300 Mg Qbhpdgu311 Mg PO DAILY 08/03/[address] 40 Mg Tablet.dr40 Mg PO BID Ref 0 08/03/15 Guaifenesin 400 Mg Crqhek812 Mg PO DAILY 30 Days 08/03/15 Citalopram 10 Mg Dnwtwf36 Mg PO DAILY Ref 0 08/03/15 Letrozole 2.5 Mg Tablet2.5 Mg PO DAILY Ref 0 06/26/15 Cholecalciferol (Vitamin D3) (Vitamin D3)2,000 Unit Capsule2,000 Unit PO DAILY 06/04/15 Multivitamin (Multi Vitamin Daily)1 Each Tablet1 Each PO DAILY 06/04/15 Cetirizine HCl (Zyrtec)10 Mg Yvjwmke18 Mg PO BID 06/04/15 Albuterol HFA (Proair HFA)8.5 Gm Hfa.aer.ad2 Puffs IH Q4 PRN For Shortness of Breath #1 INHALER 03/25/15 Doxepin 100 Mg Gyzyutf43-045 Mg PO HS 03/25/15 Loperamide 2 Mg Tablet2 Mg PO DAILY DAILY WHEN LEAVING HOME 02/20/15 Montelukast 10 Mg Lvmgus85 Mg PO HS Ref 0 02/20/15 Discontinued Reported Medications Hydromorphone 2 Mg Tablet2-4 Mg PO Q4H PRN Pain Ref 0 08/29/15 Discontinued Scripts Benzonatate 100 Mg Eklkpge845 Mg PO TID PRN For Cough #30 CAPSULE Prov:Dedra Dumont MD 11/12/16 Prednisone (Deltasone)20 Mg Mtgxcx40 Mg PO DAILY 3 Days Prov:Dedra Dumont MD 11/12/16 History History of ENT Problems?: No HEENT History: Positive for:: Cataracts (Removed) Hearing Problem (BILAT MOD [place]) Denies:: Abnormal Airway Difficult Intubation Dysphagia Sinus Problem Denture Type: Full- Upper Teeth Condition: Within Normal Limits Hx of Heart Problems?: Yes Cardiovascular History: Positive for:: Hypertension Denies:: AICD Atrial Fibrillation Cardiac Surgery Chest Pain Congestive Heart Failure Edema Heart Murmur Irregular Heartbeat Pacemaker Thrombophlebitis Valvular Heart Disease Other Cardiac History: PT STATES 'MURMUR' Hx of Respiratory Problem?: Yes Respiratory History: Positive for:: Asthma COPD Chest Surgery (left upper lobe bisegmentectomy, mediastinal lymphadenectomy ) Dyspnea Pneumonia Denies:: Cough Emphysema Hemoptysis Oxygen Administration Tuberculosis Use of C-PAP Machine Hx Neurologic Problems?: Yes Neurological History: Positive for:: CVA (TIA (MILD)) Dizziness Denies:: Alzheimer's Disease Dementia Headaches Parkinson's Disease Seizures Hx of GI Problems?: Yes (abdominal pain) Hx of Problems?: Yes Genitourinary History: Positive for:: Urinary Tract Infection (hx of) Denies:: HX of Hemodialysis Kidney Stones HX of Peritoneal Dialysis: No Female Hx: Positive for:: Problems with Breasts? (Right lumpectomy breast cancer) Denies:: Currently Endometriosis Pelvic Inflammatory Skin History: Denies:: History Skin Disorders? Pressure Ulcers Hx Musculoskeletal Problems?: Yes Musculoskeletal History: Positive for:: Back Injury (At least 5 compression fractures 1981) Denies:: Fibromyalgia Joint Replacement Musculoskeletal Trauma Hx of Psycho/Social Problems?: Yes Psycho Social History: Positive for:: Anxiety Denies:: Bipolar Disorder Hx Depression Suicide Attempt Hx Surgeries?: Yes (TONSIL/LUÍS, OVAR CYST, D&C, R BR LUMPECTOMY, LAP CHOL, HYSTO) Hx Any Other Health Problems?: Yes Other History: Positive for:: Cancer (Breast and lung cancer) Hospitalization (with surgeries) Denies:: Thyroid Disease History Blood Transfusions: Positive for:: Blood Transfusions Denies:: Blood Transfuse Reaction Hx Diabetes: No Hx Alcohol Use: YesHx Substance Use: No Smoking Status: Former Smoker Have You Smoked inLast 12 mo: Yes Stop/Bang Treated for Sleep Apnea?: No Do You Have a CPAP Machine?: No S-Snoring: Do You Snore Loudly: No T-Tired: feel tired, fatigued: No O-Obsered: Observed not breath: No P-Blood Pressure: treated: Yes B- Body Mass Index > 35 kg/m2: No A- Age over 50: Yes N- Neck Large Circumference: No G- Gender Male: No ABELARDO Total Score: 2 ABELARDO Risk Assessment: Low Risk, <3 Yes Risk Assessment Category Category 1A: Patient has history of documented sleep apnea, and HAS NOT received any narcotic, sedative or anesthesia administration during this stay. Category 1B: Patient has history of documented sleep apnea, and HAS received any narcotic , sedative or anesthesia administration during this stay Category 2: Patient has SUSPECTED Obstructive Sleep Apnea, and HAS received any narcotic , sedative or anesthesia administration during this stay. Category 3: Patient has SUSPECTED Obstructive Sleep Apnea and HAS NOT received narcotic, sedative or anesthesia administration during this stay. Category 4: Outpatient in Procedural Areas with known sleep apnea or who screen positive for High Risk via the STOP/BANG questionnaire. Exam Exam Vital Signs Vital Signs Date Time Temp Pulse Resp B/P Pulse Ox O2 Delivery O2 Flow Rate FiO2 03/23/17 13:35 66 14 133/80 96 Room Air General Appearance: Alert, Oriented X3, Cooperative HEENT/AIRWAY: MP 2, Neck Movement (Full), Mouth Opening (Wide) Lungs: Clear to Auscultation, Normal Air Movement Heart: Regular Rate/Rhythm, Normal S1, Normal S2 Meds/Labs/Diagnostics Admission Meds Current Medications Lactated Ringer's (Lr) 1,000 ml @ 10 mls/hr Q24H ONCE IV Last administered on 03/23/17t 13:56; Start 03/23/17 at 06:00; Stop 03/24/17 at 05:59 Plan Impression Patient chart reviewed, patient interviewed and anesthestic plan with risks, benefits, and alternatives discussed, and informed consent obtained. NPO per Anesth. Guidelines: Yes ASA Physical Status: ASA3 Severe Disease Anesthetic Plan: MAC Bene/Risks/Altern/Consents: Yes HP Complete Prior to Induction: Yes Oh Rojas MD Mar 23, 2017 14:40
[2017-03-23 16:00] VITALS: BP 125/66; PULSE 57; O2SAT 99
[2017-03-23 16:08] VITALS: BP 136/73; PULSE 70; O2SAT 98
--- NOTE | 2017-03-23 16:08 | PCM.ANEP1 ---
Post Anesthesia PACU Phase 1 Assessment Date of Service: Mar 23, 2017 Vital Signs Vital Signs Date Time Temp Pulse Resp B/P Pulse Ox O2 Delivery O2 Flow Rate FiO2 03/23/17 16:00 36.3 57 125/66 99 Room Air 03/23/17 13:35 66 14 133/80 96 Room Air Level of Alertness: Awake, talking ROMERO's with Equal Strength: Yes Pain: No Nausea or Vomiting: No CV Function & Hydration Stable: Yes Airway Device: Oxygen Delivery: Room Air Lungs: Clear to Auscultation, Normal Air Movement PACU Phase 2 Assessment Complications: No Follow up Care: N/A Patient Instructions Provided: N/A Oh Rojas MD Mar 23, 2017 16:08
--- NOTE | 2017-03-23 17:03 | ENDO ---
[address] [address] ENDOSCOPY PROCEDURE PATIENT: MARK MAXWELL : 1940 MR#: [id number] ADMIT: 03/23/2017 JOB ID: [id number] DATE OF SERVICE: 03/23/2017 PRIMARY PROVIDER: Emperatriz Rehman MD PROCEDURE: 1. Colonoscopy with hot snare polypectomy. 2. Cold forceps polypectomy. 3. Argon plasma coagulation ablation. INDICATIONS: A 76-year-old female with a personal history of colon polyps returning for surveillance. Her left upper quadrant pain from the intramuscular abdominal wall hematoma has resolved. EQUIPMENT: PCF H 190 L. SEDATION: Monitored anesthesia as provided by Dr. Oh Rojas. COMPLICATIONS: None identified. BOWEL PREPARATION: Fair. PROCEDURE IN DETAIL: After the risks and benefits were explained, written and verbal informed consent was obtained. The patient was brought into the endoscopy suite and placed into the left lateral decubitus position. Sedation was achieved as above. Digital rectal examination accomplished. Mild internal and external, nonbleeding, nonthrombosed hemorrhoids were noted. The scope was introduced into the rectum and advanced under direct visualization to the cecum as identified by the appendiceal orifice and ileocecal valve. The scope was slowly withdrawn to carefully examine the mucosa for any defects or lesions. Retroflexed views were avoided in the rectum. Multiple direct views were made through the dentate line for exclusion of pathology. The colon was decompressed. The scope removed from the patient who tolerated the procedure well. FINDINGS: Difficult navigation, lengthy redundant colon. There were six polyps seen and removed today, two came by way of cold forceps and the other by way of hot snare. All of these were grouped together as "colon polyps." The largest of these was probably somewhere in the 9-10 mm range, sessile, in the ascending colon. There were two nonbleeding small cecal AVMs ablated with right colon settings using a straight fire APC probe. ENDOSCOPIC DIAGNOSES: 1. Multiple colon polyps. 2. Arteriovenous malformations x2, ablated. 3. Hemorrhoids. RECOMMENDATIONS: 1. Await histopathology. 2. Repeat colonoscopy in three years with anesthesia.
--- NOTE | 2017-03-25 17:04 | PATH ---
SURGICAL PATHOLOGY Attending Physician:Cherry Cortes CASE STATUS: Signed Out PATIENT NAME: MARK MAXWELL PID: [id number] : 1940 DATE COLLECTED:03/23/2017 00:00 SPECIMEN: Colon, Polyp CLINICAL HISTORY: 1). COLON POLYPS X6 FINAL DIAGNOSIS: Colon, Polyps, Biopsies: Multiple (approximately 8) portions of tubular adenoma; negative for high-grade dysplasia. Superficial portions of colorectal mucosa x2 with no diagnostic abnormality. ICD10: K63.5 GROSS DESCRIPTION: The specimen is received in formalin, labeled with the patient's name, sublabeled as colon polyps, and consists of multiple fragments of chavez glistening rubbery semitranslucent tissue (2.1 x 1.2 x 0.4 cm in aggregate). Section code: (A) tissue. Specimen entirely submitted. 03/24/17 ICD-9 CODES: CPT CODES: 1: 08672 Electronically Signed Out Radha Jones MD [facility] [address], [place] [address] Technical component performed at [facility], [address] [place] [address] Ave[address], [place], [address]
== END 2017-03-23 23:59 | disposition home or self-care (01) ==
LOC: END 13:15
PROVIDERS: ATTEND Internal Medicine Gastroenterology
DX: D12.9 Benign neoplasm of anus and anal canal (principal); K55.21 Angiodysplasia of colon with hemorrhage; K64.8 Other hemorrhoids; R10.12 Left upper quadrant pain; Z79.82 Long term (current) use of aspirin; Z79.899 Other long term (current) drug therapy; Z88.0 Allergy status to penicillin; Z88.1 Allergy status to other antibiotic agents; Z88.5 Allergy status to narcotic agent; Z88.8 Allergy status to other drugs, medicaments and biological substances; Z87.891 Personal history of nicotine dependence
CPT/HCPCS: 45380; 45382; 45385; 88305; J7120